=== PATIENT | male | born 1990 | race Two or more races ===

== ENCOUNTER 2018-08-05 17:50 | Emergency (ER) | payer BC ==
[2018-08-05] MEDS ORDERED: HYDROcodone/ACETAMIN 5-325 MG* 1 TAB PO ONE (18:17)
--- NOTE | 2018-08-05 18:29 | ED ---
Upper Extremity Pain - HPI Summary HPI Summary: Patient complains of left elbow pain radiating to left wrist and left shoulder status post fall while skiing today.. Denies any other pain or injury or symptoms. Medical history is none. - History of Current Complaint Chief Complaint: EDExtremityUpper Stated Complaint: LEFT ARM INJURY Time Seen by Provider: 08/05/18 18:06 Hx Obtained From: Patient Mechanism Of Injury: Fall From A Standing Position Onset/Duration: Started Hours Ago Timing: Constant Severity Initially: Severe Severity Currently: Severe Pain Location: Elbow Character: Aching, Throbbing Aggravating Factor(s): Movement Alleviating Factor(s): Nothing Associated Signs & Symptoms: Positive: Swelling - Allergies/Home Medications Allergies/Adverse Reactions: Allergies Allergy/AdvReac Type Severity Reaction Status Date / Time No Known Drug Allergies Allergy See Comment Verified 08/05/18 18:00 Home Medications: Home Medications Mesalamine [Mesalamine Dr] 3.6 gm PO DAILY 08/05/18 [History Confirmed 08/05/18] PMH/Surg Hx/FS Hx/Imm Hx Endocrine/Hematology History: Denies: Hx Anticoagulant Therapy Cardiovascular History: Denies: Hx Atrial Fibrillation History: Denies: Hx Dialysis Sensory History: Denies: Hx Eye Prosthesis Opthamlomology History: Denies: Hx Legally Blind EENT History: Denies: Hx Deafness Neurological History: Denies: Hx Dementia Psychiatric History: Denies: Hx Autism Infectious Disease History: No Infectious Disease History: Denies: Traveled Outside the [place] in Last 30 Days - Social History Alcohol Use: None Substance Use Type: Reports: None Smoking Status (MU): Never Smoked Tobacco Review of Systems Constitutional: Negative Eyes: Negative ENT: Negative Cardiovascular: Negative Respiratory: Negative Gastrointestinal: Negative Genitourinary: Negative Musculoskeletal: Other Skin: Negative Neurological: Negative Psychological: Normal All Other Systems Reviewed And Are Negative: Yes Physical Exam - Summary Physical Exam Summary: No pain with palpation of left shoulder, left upper arm, left wrist or hand.. Pain with palpation of left elbow. Positive swelling. No ecchymosis or erythema. PMS intact distally. Triage Information Reviewed: Yes Vital Signs On Initial Exam: Initial Vitals Temp Pulse Resp BP Pulse Ox 99.8 F 103 18 122/82 99 08/05/18 17:54 08/05/18 17:54 08/05/18 17:54 08/05/18 17:54 08/05/18 17:54 Vital Signs Reviewed: Yes Appearance: Positive: Well-Appearing Skin: Positive: Warm Head/Face: Positive: Normal Head/Face Inspection Eyes: Positive: Normal Neck: Positive: Supple Respiratory/Lung Sounds: Positive: Clear to Auscultation Cardiovascular: Positive: Normal Abdomen Description: Positive: Nontender Musculoskeletal: Positive: Normal Neurological: Positive: Normal Psychiatric: Positive: Normal AVPU Assessment: Alert - [place] Coma Scale Best Eye Response: 4 - Spontaneous Best Motor Response: 6 - Obeys Commands Best Verbal Response: 5 - Oriented Coma Scale Total: 15 Diagnostics - Vital Signs Vital Signs Temp Pulse Resp BP Pulse Ox 08/05/18 17:54 99.8 F 103 18 122/82 99 - Laboratory Lab Statement: Any lab studies that have been ordered have been reviewed, and results considered in the medical decision making process. Course/Dx - Course Course Of Treatment: Patient complains of left elbow pain radiating to left wrist and left shoulder status post fall while skiing today.. Denies any other pain or injury or symptoms. Medical history is none. Physical exam:No pain with palpation of left shoulder or left upper arm. Pain with palpation of left elbow. Positive swelling. No ecchymosis or erythema. PMS intact distally. Vital signs within normal limits. X-ray left elbow abnormal. CT elbow positive for posterior elbow dislocation and coronoid process fracture. Dislocation reduced by Dr. Dewitt with moderate sedation, confirmed by x-ray. Patient placed in splint with sling. Rx for Percocet. Follow-up with orthopedics Dr. Patetn on Wednesday. Patient understands and approves with plan. - Diagnoses Provider Diagnoses: Dislocation of left elbow, Fracture of coronoid process of left ulna Discharge - Sign-Out/Discharge Documenting (check all that apply): Patient Departure Patient Received Moderate/Deep Sedation with Procedure: No - Discharge Plan Condition: Stable Disposition: HOME Prescriptions: oxyCODONE/Acetamin 5/325 MG* [Percocet 5/325 TAB*] 1 tab PO Q4H PRN 3 Days #18 tab MDD 6 tabs PRN Reason: Pain Patient Education Materials: Elbow Dislocation (ED), Elbow Fracture (ED) Referrals: No Primary Care Phys,NOPCP [Primary Care Provider] - Eliot Patten MD [Medical Doctor] - Additional Instructions: Follow-up for with orthopedics Dr. Patten on Wednesday. Return to the ED for any new or worsening symptoms. - Billing Disposition and Condition Condition: STABLE Disposition: Home
[2018-08-05] MEDS ORDERED: Ibuprofen TAB* 400 MG PO ONE (18:30)
[2018-08-05] MEDS ORDERED: Cyclobenzaprine TAB* 10 MG PO ONE (19:45)
[2018-08-05] MEDS ORDERED: Acetaminophen TAB* 325 MG PO ONE (19:45)
[2018-08-05] MEDS ORDERED: Ondansetron INJ* 2 MG/ML VIAL ONE (22:22)
[2018-08-05] MEDS ORDERED: fentaNYL* 50 MCG/ML 2 ML VIAL (100 MCG VIAL) ONE (22:35)
[2018-08-05] MEDS ORDERED: Midazolam concentrated* 5 MG/ML 1 ml VIAL ONE (22:35)
--- NOTE | 2018-08-05 23:09 | ED ---
Course/Dx - Course Course Of Treatment: Reduction of Left Elbow dislocation preformed. Patient consented and went under moderate sedation. Reduction was successful. Traction/ countertraction/flexion were tested. Neurovascular exam was intact pre and post reduction. Post reduction XR shows good alignment and possible carnoid fracture. Posterior splint was applied from the mid hand to the mid upper arm with the elbow at 90 degrees. We discussed this case with Dr. Patten ( Orthopedist) at 2325, who reviewed the post reduction XR and found the reduction satisfactory. - Diagnoses Provider Diagnoses: Dislocation of left elbow, Fracture of coronoid process of left ulna - Provider Notifications Discussed Care Of Patient With: Eliot Patten - Orthopedist Time Discussed With Above Provider: 23:25 Discharge - Sign-Out/Discharge Documenting (check all that apply): Patient Departure Patient Received Moderate/Deep Sedation with Procedure: Yes - Discharge Plan Condition: Stable Disposition: HOME Prescriptions: oxyCODONE/Acetamin 5/325 MG* [Percocet 5/325 TAB*] 1 tab PO Q4H PRN 3 Days #18 tab MDD 6 tabs PRN Reason: Pain Patient Education Materials: Elbow Dislocation (ED), Elbow Fracture (ED) Referrals: Eliot Patten MD [Medical Doctor] - No Primary Care Phys,NOPCP [Primary Care Provider] - Additional Instructions: Follow-up for with orthopedics Dr. Patten on Wednesday. Return to the ED for any new or worsening symptoms. - Attestation Statements Document Initiated by Scribe: Yes Documenting Scribe: Roopa Osei Provider For Whom Scribe is Documenting (Include Credential): Leonila Dewitt MD Scribe Attestation: Roopa Partida, scribed for Leonila Dewitt MD on 08/06/18 at 0124. Procedures - Procedure Summary Procedure Summary: Moderate sedation procedure. Moderate sedation protocol was followed. Patient was given fentanyl 100mcg IV, versed 5mg IV. Moderate sedation accomplished. No reversal agent used. Vitals remained stable throughout. Time spent: 15 minutes - Joint Reduction Left Joint Reduction Site: elbow (L) Conscious Sedation: Yes Reduction Attempts: 1 Pre-Procedure NV Exam: Yes - NV exam pre and post reduction intact Post Joint Reduction Film: joint reduced
[2018-08-06 01:07] VITALS: BP 122/74
== END 2018-08-06 01:06 | disposition home or self-care (01) ==
LOC: ED 17:50
DX: S53.105A Unspecified dislocation of left ulnohumeral joint, initial encounter (principal); S52.042A Displaced fracture of coronoid process of left ulna, initial encounter for closed fracture; W19.XXXA Unspecified fall, initial encounter; Y93.23 Activity, snow (alpine) (downhill) skiing, snowboarding, sledding, tobogganing and snow tubing; Y92.9 Unspecified place or not applicable
CPT/HCPCS: 24600; 96374; 99284; A9270-GY; J2250; J2405; J3010

== ENCOUNTER 2019-09-04 17:42 | Emergency (ER) | payer OTHER ==
[2019-09-04 19:42] LABS: ABS Eosinophils 0.1 10^3/ul (0-0.6); ABS Lymphocytes 1.4 10^3/ul (1.0-4.8); ABS Monocytes 0.7 10^3/ul (0-0.8); ABS Neutrophils 8.5 10^3/ul (1.5-7.7); Eosinophil % 0.6 %; Hematocrit 42 % (42-52); Hemoglobin 14.5 g/dL (14.0-18.0); Lymphocyte % 13.2 %; Mean Corpuscular HGB Conc 34 g/dL (31-36); Mean Corpuscular Hemoglobin 29 pg (27-31); Mean Corpuscular Volume 85 fL (80-94); Mean Platelet Volume 8.7 fL (7.4-10.4); Nucleated Red Blood Cells % 0.1; Platelet Count 183 10^3/uL (150-450); Red Cell Distribution Width 14 % (10-15); White Blood Count 10.7 10^3/uL (3.5-10.8)
[2019-09-04 20:01] LABS: Albumin 4.5 g/dL (3.2-5.2); Albumin/Globulin Ratio 1.7 (1-3); BUN/Creatinine Ratio 15.9 (8-20); Calcium 9.2 mg/dL (8.6-10.3); EGFR African American 134.4 (>60); EGFR Non-African American 111.1 (>60); Globulin 2.7 g/dL (2-4); Potassium 3.5 mmol/L (3.5-5.0); Total Bilirubin 0.3 mg/dL (0.2-1.0); Total Protein 7.2 g/dL (6.4-8.9)
[2019-09-04] MEDS ORDERED: Iohexol 300* (CONTRAST) 10 ML SDV IV ONE (20:11)
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
[2019-09-04 20:28] LABS: Urine Appearance Clear; Urine Bilirubin Negative (Negative); Urine Blood Negative (Negative); Urine Color Colorless; Urine Glucose Negative (Negative); Urine Ketones Negative (Negative); Urine Nitrite Negative (Negative); Urine Protein Negative (Negative); Urine Specific Gravity 1.001 (1.010-1.030); Urine Urobilinogen Negative (Negative)
[2019-09-04] MEDS ORDERED: Acetaminophen TAB* 325 MG PO ONE (21:10)
[2019-09-04] MEDS ORDERED: HYDROcodone/ACETAMIN 5-325 MG* 1 TAB PO ONE (21:30)
[2019-09-04 22:10] VITALS: BP 110/70
== END 2019-09-04 22:10 | disposition home or self-care (01) ==
LOC: ED 17:42
DX: S09.90XA Unspecified injury of head, initial encounter (principal); S60.229A Contusion of unspecified hand, initial encounter; S30.1XXA Contusion of abdominal wall, initial encounter; S69.91XA Unspecified injury of right wrist, hand and finger(s), initial encounter; W05.1XXA Fall from non-moving nonmotorized scooter, initial encounter; Y92.9 Unspecified place or not applicable; Z79.899 Other long term (current) drug therapy
CPT/HCPCS: 36415; 70486; 74177; 80053; 81003; 85025; 99283; Q9967